=== PATIENT | male | born 1995 | race African-American/Black ===

== ENCOUNTER 2018-02-16 14:27 | Inpatient (IN) | payer MEDICAID ==
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
[2018-02-16] MEDS ORDERED: Aspirin 81mg Chewable Tab PO STA (14:52)
[2018-02-16 15:28] LABS: HEMATOCRIT 30.9 % (41.0-60); HEMOGLOBIN 10.1 gm/dL (12-16); MEAN CORPUSCULAR HEMOGLOBIN 22.4 pg (26.0-30.0); MEAN CORPUSCULAR HGB CONC 32.7 pg (28.0-36.0); MEAN PLATELET VOLUME 7.7 fl; PLATELET COUNT 578 Th/cmm (150-400); RED BLOOD COUNT 4.52 Mil/cmm (4.30-5.70); RED CELL DISTRIBUTION WIDTH 16.5 % (11.5-20.0); WHITE BLOOD COUNT 8.9 Th/cmm (4.8-10.8)
[2018-02-16 15:31] LABS: ALB/GLOB RATIO 1.5 (1.0-1.8); ALBUMIN 4.5 gm/dL (4.2-5.5); ALKALINE PHOSPHATASE 76 U/L (34-104); ANION GAP 11.9 (7.0-16.0); BILIRUBIN,TOTAL 0.5 mg/dL (0.3-1.0); BUN - UREA NITROGEN 13 mg/dL (7-25); CALCIUM SERUM 9.8 mg/dL (8.6-10.3); CARBON DIOXIDE 22.6 mEq/L (21.0-31.0); CHLORIDE 102 mEq/L (98-107); CHOLESTEROL 152 mg/dL (<200); CREATININE - SERUM 0.9 mg/dL (0.7-1.3); CREATININE KINASE 51 U/L (30-223); GFR AFRICAN-AMERICAN > 60.0 ml/min (>90); GFR NON AFRICAN-AMERICAN > 60.0 ml/min; GLUCOSE 156 mg/dL (70-105); HDL -HIGH DENSITY LIPOPROTEIN 41 mg/dL (23-92); POTASSIUM SERUM 3.5 mEq/L (3.5-5.1); SGOT 15 U/L (13-39); SGPT/ALT 17 U/L (7-52); SODIUM SERUM 133 mEq/L (136-145); TOTAL PROTEIN,SERUM 7.6 gm/dL (6.0-8.3); TRIGLYCERIDES 94 mg/dL (<150)
[2018-02-16 15:40] LABS: MEAN CELL VOLUME 68.4 fl (80-99)
[2018-02-16 15:41] LABS: MANUAL DIFF REQUIRED? YES
[2018-02-16 15:42] LABS: DDIMER QUANT 162 ng/mL (100-400)
[2018-02-16 15:58] LABS: BAND NEUTROPHILE 3 % (0-10); BASOPHIL 0 % (0-3); EOSINOPHIL 0 % (0-5); LYMPHOCYTE 9 % (20-50); MONOCYTE 1 % (2-10); NEUTROPHILS 87 % (40-80); PLATELET ESTIMATE INCREASED PLATELETS (NORMAL); TOTAL CELLS COUNTED 100
[2018-02-16] MEDS ORDERED: Aspirin 81mg Chewable Tab ONE (16:02)
[2018-02-16 16:09] LABS: INR 1.04 (0.5-1.4); PROTHROMBIN TIME (TEST) 10.8 SECONDS (9.5-11.5)
[2018-02-16] MEDS ORDERED: Non-Formulary Item 1 EA (Meloxicam [Meloxicam] 15 MG) PO PRN (19:33)
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
[2018-02-16 21:08] LABS: AMPHETAMINE URINE NEGATIVE (NEGATIVE); BARBITURATES URINE NEGATIVE (NEGATIVE); BENZODIAZEPINES QUAL URINE POSITIVE (NEGATIVE); CANNABINOID THC NEGATIVE (NEGATIVE); COCAINE METABOLITE QUAL URINE NEGATIVE (NEGATIVE); METHADONE URINE NEGATIVE (NEGATIVE); METHAMPHETAMINES QUAL URINE NEGATIVE (NEGATIVE); OPIATES (MORPHINE) QUAL. URINE POSITIVE (NEGATIVE); PHENCYCLIDINE (PCP) URINE NEGATIVE (NEGATIVE); TRICYCLICS (TCA) QUAL. URINE NEGATIVE (NEGATIVE)
[2018-02-17] MEDS: Albuterol Nebulizer 2.5mg/3mL HHN SCH ×4 (00:51→21:36)
[2018-02-17 05:53] VITALS: BP 113/49
[2018-02-17 06:33] LABS: HEMATOCRIT 31.3 % (41.0-60); HEMOGLOBIN 9.9 gm/dL (12-16); MEAN CORPUSCULAR HEMOGLOBIN 21.5 pg (26.0-30.0); MEAN CORPUSCULAR HGB CONC 31.8 pg (28.0-36.0); MEAN PLATELET VOLUME 7.5 fl; PLATELET COUNT 612 Th/cmm (150-400); RED BLOOD COUNT 4.61 Mil/cmm (4.30-5.70); RED CELL DISTRIBUTION WIDTH 16.5 % (11.5-20.0); WHITE BLOOD COUNT 6.9 Th/cmm (4.8-10.8)
[2018-02-17 06:37] LABS: MANUAL DIFF REQUIRED? YES
[2018-02-17 07:20] LABS: BAND NEUTROPHILE 1 % (0-10); BASOPHIL 4 % (0-3); EOSINOPHIL 1 % (0-5); LYMPHOCYTE 35 % (20-50); MONOCYTE 7 % (2-10); NEUTROPHILS 52 % (40-80); PLATELET ESTIMATE INCREASED PLATELETS (NORMAL); TOTAL CELLS COUNTED 100
[2018-02-17 07:57] LABS: ANION GAP 16.7 (7.0-16.0); BUN - UREA NITROGEN 12 mg/dL (7-25); CARBON DIOXIDE 19.7 mEq/L (21.0-31.0); CHLORIDE 105 mEq/L (98-107); CREATININE - SERUM 0.8 mg/dL (0.7-1.3); GFR AFRICAN-AMERICAN > 60.0 ml/min (>90); GFR NON AFRICAN-AMERICAN > 60.0 ml/min; GLUCOSE 128 mg/dL (70-105); POTASSIUM SERUM 3.4 mEq/L (3.5-5.1); SODIUM SERUM 138 mEq/L (136-145)
[2018-02-17] MEDS ORDERED: Morphine Sulfate 2 mg/mL 1mL Syr IVP PRN (08:15)
--- NOTE | 2018-02-17 08:19 | General Progress Note ---
Subjective - Review of Systems Service Date: 02/17/18 Subjective: Patient was seen and exam and no acute distress. No shortness of breath. Objective - Results Result Diagrams: 02/17/18 06:09 02/16/18 15:07 Recent Labs: Laboratory Last Values WBC 6.9 Th/cmm (4.8-10.8) 02/17/18 06:09 RBC 4.61 Mil/cmm (4.30-5.70) 02/17/18 06:09 Hgb 9.9 gm/dL (12-16) L 02/17/18 06:09 Hct 31.3 % (41.0-60) L 02/17/18 06:09 MCV 68.4 fl (80-99) L 02/16/18 14:55 MCH 21.5 pg (26.0-30.0) L 02/17/18 06:09 MCHC Differential 31.8 pg (28.0-36.0) 02/17/18 06:09 RDW 16.5 % (11.5-20.0) 02/17/18 06:09 Plt Count 612 Th/cmm (150-400) H 02/17/18 06:09 MPV 7.5 fl 02/17/18 06:09 Band Neutrophils % 1 % (0-10) 02/17/18 06:09 Neutrophils (Manual) 52 % (40-80) 02/17/18 06:09 Lymphocytes 35 % (20-50) 02/17/18 06:09 Monocytes 7 % (2-10) 02/17/18 06:09 Eosinophils 1 % (0-5) 02/17/18 06:09 Basophils 4 % (0-3) H 02/17/18 06:09 Platelet Estimate INCREASED PLATELETS (NORMAL) 02/17/18 06:09 Microcytosis 2+ 02/17/18 06:09 PT 10.8 SECONDS (9.5-11.5) 02/16/18 15:07 INR 1.04 (0.5-1.4) 02/16/18 15:07 D-Dimer 162 ng/mL (100-400) 02/16/18 15:07 Sodium 133 mEq/L (136-145) L 02/16/18 15:07 Potassium 3.5 mEq/L (3.5-5.1) 02/16/18 15:07 Chloride 102 mEq/L (98-107) 02/16/18 15:07 Carbon Dioxide 22.6 mEq/L (21.0-31.0) 02/16/18 15:07 Anion Gap 11.9 (7.0-16.0) 02/16/18 15:07 BUN 13 mg/dL (7-25) 02/16/18 15:07 Creatinine 0.9 mg/dL (0.7-1.3) 02/16/18 15:07 Est GFR ( Amer) > 60.0 ml/min (>90) 02/16/18 15:07 Est GFR (Non-Af Amer) > 60.0 ml/min 02/16/18 15:07 BUN/Creatinine Ratio 14.4 02/16/18 15:07 Glucose 156 mg/dL (70-105) H 02/16/18 15:07 Calcium 9.8 mg/dL (8.6-10.3) 02/16/18 15:07 Total Bilirubin 0.5 mg/dL (0.3-1.0) 02/16/18 15:07 AST 15 U/L (13-39) 02/16/18 15:07 ALT 17 U/L (7-52) 02/16/18 15:07 Alkaline Phosphatase 76 U/L (34-104) 02/16/18 15:07 Creatine Kinase 51 U/L (30-223) 02/16/18 15:07 Troponin I < 0.01 ng/mL (0.01-0.05) L 02/17/18 06:09 B-Natriuretic Peptide 8.2 pg/mL (5.0-100.0) 02/17/18 06:09 Total Protein 7.6 gm/dL (6.0-8.3) 02/16/18 15:07 Albumin 4.5 gm/dL (4.2-5.5) 02/16/18 15:07 Globulin 3.1 gm/dL 02/16/18 15:07 Albumin/Globulin Ratio 1.5 (1.0-1.8) 02/16/18 15:07 Triglycerides 94 mg/dL (<150) 02/16/18 15:07 Cholesterol 152 mg/dL (<200) 02/16/18 15:07 LDL Cholesterol Direct 101 mg/dL (75-193) 02/16/18 15:07 HDL Cholesterol 41 mg/dL (23-92) 02/16/18 15:07 TSH 0.31 uIU/ml (0.34-5.60) L 02/16/18 15:07 Urine Opiates Screen POSITIVE (NEGATIVE) H 02/16/18 16:35 Urine Methadone Screen NEGATIVE (NEGATIVE) 02/16/18 16:35 Ur Barbiturates Screen NEGATIVE (NEGATIVE) 02/16/18 16:35 Ur Tricyclics Screen NEGATIVE (NEGATIVE) 02/16/18 16:35 Ur Phencyclidine Scrn NEGATIVE (NEGATIVE) 02/16/18 16:35 Amphetamines Screen NEGATIVE (NEGATIVE) 02/16/18 16:35 U Methamphetamines Scrn NEGATIVE (NEGATIVE) 02/16/18 16:35 U Benzodiazepines Scrn POSITIVE (NEGATIVE) H 02/16/18 16:35 U Cocaine Metab Screen NEGATIVE (NEGATIVE) 02/16/18 16:35 U Cannabinoids Screen NEGATIVE (NEGATIVE) 02/16/18 16:35 Ethyl Alcohol < 10 mg/dL (0-10) 02/16/18 15:07 - Physical Exam Vitals and I&O: Vital Signs Temp 97.0 F 02/17/18 04:00 Pulse 83 02/17/18 07:24 Resp 18 02/17/18 07:24 BP 113/49 02/17/18 05:53 Pulse Ox 100 02/17/18 07:24 Intake & Output 02/16/18 02/17/18 02/17/18 18:59 06:59 18:59 Intake Total 460 Balance 460 Weight (lbs) 102.058 kg Intake: Oral 460 Other: # Voids 2 # Bowel Movements 0 Weight Source Patient stated Active Medications: Current Medications Albuterol Sulfate (Albuterol 2.5mg/3ml Neb Ud) 2.5 mg HHN Q6HRT RODRIGUEZ Stop: 04/18/18 00:59 Last Admin: 02/17/18 07:24 Dose: 2.5 mg Ferrous Sulfate (Iron) 325 mg PO DAILY RODRIGUEZ Stop: 04/18/18 08:59 Gabapentin (Neurontin) 800 mg PO Q8HR RODRIGUEZ Stop: 04/17/18 20:59 Last Admin: 02/17/18 05:16 Dose: 800 mg Insulin Aspart (Novolog) 2 units SUBQ DAILY [facility] Stop: 04/18/18 08:59 Miscellaneous (Apixaban [Eliquis]) 5 mg PO BID [facility] Stop: 04/18/18 08:59 Miscellaneous (Meloxicam [Meloxicam]) 15 mg PO PRN PRN PRN Reason: PAIN Morphine Sulfate (Ms-Contin) 15 mg PO Q4HR PRN PRN Reason: Severe Pain Stop: 04/18/18 00:00 Pantoprazole Sodium (Protonix) 40 mg PO DAILY [facility] Stop: 04/18/18 08:59 Prednisone (Deltasone) 50 mg PO BID [facility] Stop: 04/18/18 08:59 Sucralfate (Carafate) 1 gm PO BID [facility] Stop: 04/18/18 08:59 Trazodone HCl (Desyrel) 50 mg PO PRN PRN; Protocol PRN Reason: Sleeplessness Stop: 04/17/18 19:32 General: Alert, Oriented x3 HEENT: Atraumatic, PERRLA, EOMI Cardiovascular: Regular rate, Normal S1, Normal S2 Lungs: Clear to auscultation Abdomen: Bowel sounds, Soft Extremities: no Clubbing, no Cyanosis, no Edema Assessment/Plan - Problem List Patient Problems: All Active Problems LEFT SIDED CHEST PAIN WITH DIZZINESS (Acute) - Assessment Assessment: Current Active Problems Problem Status Onset LEFT SIDED CHEST PAIN WITH DIZZINESS Acute Chest Pain r/o ACS HTN CAD Dyslipidemia Asthma/COPD PUD/GERD Athritis Stent placement Anemia Neuropathy - Plan Plan: Cardiology consult telemetry bed chest xray repeat troponin I q8x3
--- NOTE | 2018-02-17 08:20 | Diagnostic Imaging Report ---
Portable chest x-ray Time: 1500 hours History: Chest pain Allowing for portable technique the heart size is normal. No focal pulmonary parenchymal processes. No hilar or mediastinal abnormalities. Impression: No acute abnormalities.
[2018-02-17 08:57] LABS: MEAN CELL VOLUME 67.8 fl (80-99)
[2018-02-17] MEDS ORDERED: INSULIN ASPART, RECOMBINANT 100 UNITS/ML SUBQ SCH (09:00)
[2018-02-17] MEDS ORDERED: Non-Formulary Item 1 EA (Apixaban [Eliquis] 5 MG) PO SCH (09:00)
[2018-02-17] MEDS: Pantoprazole 40 mg EC Tab PO SCH (09:15)
[2018-02-17] MEDS: Ferrous Sulfate 325 MG TAB PO SCH (09:15)
[2018-02-17] MEDS: KCL 20mEq/100mL Premix 20 MEQ/100 ML PIGGYBACK IV SCH ×2 (10:05→11:31)
[2018-02-17] MEDS ORDERED: Potassium Chloride 20 MEQ, Lidocaine 1% 20mL Vial 25 MG in Sodium Chloride 0.9% 250 ML IV ONE (11:02)
[2018-02-17] MEDS: INSULIN ASPART SLIDING SCALE 100 UNITS/ML UNIT SUBQ SCH ×3 (12:10→20:57)
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
[2018-02-18] MEDS: Albuterol Nebulizer 2.5mg/3mL HHN SCH ×4 (00:53→19:38)
[2018-02-18 05:43] LABS: HEMATOCRIT 31.7 % (41.0-60); HEMOGLOBIN 10.1 gm/dL (12-16); MEAN CORPUSCULAR HEMOGLOBIN 21.8 pg (26.0-30.0); MEAN CORPUSCULAR HGB CONC 31.9 pg (28.0-36.0); MEAN PLATELET VOLUME 7.5 fl; PLATELET COUNT 589 Th/cmm (150-400); RED BLOOD COUNT 4.65 Mil/cmm (4.30-5.70); RED CELL DISTRIBUTION WIDTH 16.4 % (11.5-20.0); WHITE BLOOD COUNT 11.8 Th/cmm (4.8-10.8)
[2018-02-18 05:44] LABS: MANUAL DIFF REQUIRED? YES; MEAN CELL VOLUME 68.2 fl (80-99)
[2018-02-18 06:13] LABS: BAND NEUTROPHILE 3 % (0-10); LYMPHOCYTE 16 % (20-50); MONOCYTE 3 % (2-10); NEUTROPHILS 78 % (40-80); TOTAL CELLS COUNTED 100
[2018-02-18] MEDS: INSULIN ASPART SLIDING SCALE 100 UNITS/ML UNIT SUBQ SCH ×4 (06:30→20:53)
--- NOTE | 2018-02-18 08:19 | General Progress Note ---
Subjective - Review of Systems Service Date: 02/18/18 Subjective: Patient was seen and exam and no acute distress. No shortness of breath. Anxious this AM. visibly shaking. Admits to Anxiety Objective - Results Result Diagrams: 02/18/18 05:34 02/17/18 06:09 Recent Labs: Laboratory Last Values WBC 11.8 Th/cmm (4.8-10.8) H 02/18/18 05:34 RBC 4.65 Mil/cmm (4.30-5.70) 02/18/18 05:34 Hgb 10.1 gm/dL (12-16) L 02/18/18 05:34 Hct 31.7 % (41.0-60) L 02/18/18 05:34 MCV 68.2 fl (80-99) L 02/18/18 05:34 MCH 21.8 pg (26.0-30.0) L 02/18/18 05:34 MCHC Differential 31.9 pg (28.0-36.0) 02/18/18 05:34 RDW 16.4 % (11.5-20.0) 02/18/18 05:34 Plt Count 589 Th/cmm (150-400) H 02/18/18 05:34 MPV 7.5 fl 02/18/18 05:34 Band Neutrophils % 3 % (0-10) 02/18/18 05:34 Neutrophils (Manual) 78 % (40-80) 02/18/18 05:34 Lymphocytes 16 % (20-50) L 02/18/18 05:34 Monocytes 3 % (2-10) 02/18/18 05:34 Eosinophils 1 % (0-5) 02/17/18 06:09 Basophils 4 % (0-3) H 02/17/18 06:09 Platelet Estimate INCREASED PLATELETS (NORMAL) 02/17/18 06:09 Microcytosis 2+ 02/18/18 05:34 ESR 36 mm/hr (0-20) H 02/17/18 06:09 PT 10.8 SECONDS (9.5-11.5) 02/16/18 15:07 INR 1.04 (0.5-1.4) 02/16/18 15:07 D-Dimer 162 ng/mL (100-400) 02/16/18 15:07 Sodium 138 mEq/L (136-145) 02/17/18 06:09 Potassium 3.4 mEq/L (3.5-5.1) L 02/17/18 06:09 Chloride 105 mEq/L (98-107) 02/17/18 06:09 Carbon Dioxide 19.7 mEq/L (21.0-31.0) L 02/17/18 06:09 Anion Gap 16.7 (7.0-16.0) H 02/17/18 06:09 BUN 12 mg/dL (7-25) 02/17/18 06:09 Creatinine 0.8 mg/dL (0.7-1.3) 02/17/18 06:09 Est GFR ( Amer) > 60.0 ml/min (>90) 02/17/18 06:09 Est GFR (Non-Af Amer) > 60.0 ml/min 02/17/18 06:09 BUN/Creatinine Ratio 15.0 02/17/18 06:09 Glucose 128 mg/dL (70-105) H 02/17/18 06:09 POC Glucose 125 MG/DL (70 - 105) H 02/18/18 05:51 Hemoglobin A1c % 6.0 % (4.0-6.0) 02/16/18 15:07 Calcium 10.0 mg/dL (8.6-10.3) 02/17/18 06:09 Total Bilirubin 0.5 mg/dL (0.3-1.0) 02/16/18 15:07 AST 15 U/L (13-39) 02/16/18 15:07 ALT 17 U/L (7-52) 02/16/18 15:07 Alkaline Phosphatase 76 U/L (34-104) 02/16/18 15:07 Creatine Kinase 51 U/L (30-223) 02/16/18 15:07 Troponin I < 0.01 ng/mL (0.01-0.05) L 02/17/18 22:00 C-Reactive Protein < 0.2 mg/dL (0.0-0.9) 02/17/18 14:15 B-Natriuretic Peptide 8.2 pg/mL (5.0-100.0) 02/17/18 06:09 Total Protein 7.6 gm/dL (6.0-8.3) 02/16/18 15:07 Albumin 4.5 gm/dL (4.2-5.5) 02/16/18 15:07 Globulin 3.1 gm/dL 02/16/18 15:07 Albumin/Globulin Ratio 1.5 (1.0-1.8) 02/16/18 15:07 Triglycerides 94 mg/dL (<150) 02/16/18 15:07 Cholesterol 152 mg/dL (<200) 02/16/18 15:07 LDL Cholesterol Direct 101 mg/dL (75-193) 02/16/18 15:07 HDL Cholesterol 41 mg/dL (23-92) 02/16/18 15:07 TSH 0.31 uIU/ml (0.34-5.60) L 02/16/18 15:07 Urine Opiates Screen POSITIVE (NEGATIVE) H 02/16/18 16:35 Urine Methadone Screen NEGATIVE (NEGATIVE) 02/16/18 16:35 Ur Barbiturates Screen NEGATIVE (NEGATIVE) 02/16/18 16:35 Ur Tricyclics Screen NEGATIVE (NEGATIVE) 02/16/18 16:35 Ur Phencyclidine Scrn NEGATIVE (NEGATIVE) 02/16/18 16:35 Amphetamines Screen NEGATIVE (NEGATIVE) 02/16/18 16:35 U Methamphetamines Scrn NEGATIVE (NEGATIVE) 02/16/18 16:35 U Benzodiazepines Scrn POSITIVE (NEGATIVE) H 02/16/18 16:35 U Cocaine Metab Screen NEGATIVE (NEGATIVE) 02/16/18 16:35 U Cannabinoids Screen NEGATIVE (NEGATIVE) 02/16/18 16:35 Ethyl Alcohol < 10 mg/dL (0-10) 02/16/18 15:07 - Physical Exam Vitals and I&O: Vital Signs Temp 97.6 F 02/18/18 04:00 Pulse 83 02/18/18 07:27 Resp 18 02/18/18 07:27 BP 103/53 02/18/18 04:00 Pulse Ox 99 02/18/18 07:27 Intake & Output 02/17/18 02/18/18 02/18/18 18:59 06:59 18:59 Intake Total 600 Balance 600 Weight (lbs) 102.058 kg 102.058 kg Intake: Oral 600 Other: # Voids 3 # Bowel Movements 0 Weight Source Patient stated Bedscale Active Medications: Current Medications Albuterol Sulfate (Albuterol 2.5mg/3ml Neb Ud) 2.5 mg HHN Q6HRT [facility] Stop: 04/18/18 00:59 Last Admin: 02/18/18 07:27 Dose: 2.5 mg Ferrous Sulfate (Iron) 325 mg PO DAILY [facility] Stop: 04/18/18 08:59 Last Admin: 02/17/18 09:15 Dose: 325 mg Gabapentin (Neurontin) 800 mg PO Q8HR [facility] Stop: 04/17/18 20:59 Last Admin: 02/18/18 04:12 Dose: 800 mg Insulin Aspart (Novolog) 2 units SUBQ DAILY [facility] Stop: 04/18/18 08:59 Last Admin: 02/17/18 08:31 Dose: 2 units Insulin Aspart (Novolog Insulin Sliding Scale) 0 units SUBQ ACHS [facility] PRN Reason: Protocol Stop: 04/18/18 11:29 Last Admin: 02/18/18 06:30 Dose: Not Given Lorazepam (Ativan) 0.5 mg PO Q6HR PRN; Protocol PRN Reason: Agitation Stop: 04/19/18 08:14 Miscellaneous (Apixaban [Eliquis]) 5 mg PO BID [facility] Stop: 04/18/18 08:59 Miscellaneous (Meloxicam [Meloxicam]) 15 mg PO PRN PRN PRN Reason: PAIN Morphine Sulfate (Ms-Contin) 15 mg PO Q4H PRN PRN Reason: Pain (Moderate) Stop: 04/18/18 08:44 Last Admin: 02/18/18 04:12 Dose: 15 mg Pantoprazole Sodium (Protonix) 40 mg PO DAILY [facility] Stop: 04/18/18 08:59 Last Admin: 02/17/18 09:15 Dose: 40 mg Prednisone (Deltasone) 50 mg PO BID [facility] Stop: 04/18/18 08:59 Last Admin: 02/17/18 17:16 Dose: 50 mg Sucralfate (Carafate) 1 gm PO BID [facility] Stop: 04/18/18 08:59 Last Admin: 02/17/18 17:16 Dose: 1 gm Trazodone HCl (Desyrel) 50 mg PO PRN PRN; Protocol PRN Reason: Sleeplessness Stop: 04/17/18 19:32 Last Admin: 02/18/18 05:47 Dose: 50 mg General: Alert, Oriented x3 HEENT: Atraumatic, PERRLA, EOMI Cardiovascular: Regular rate, Normal S1, Normal S2 Lungs: Clear to auscultation Abdomen: Bowel sounds, Soft Extremities: no Clubbing, no Cyanosis, no Edema Assessment/Plan - Problem List Patient Problems: All Active Problems LEFT SIDED CHEST PAIN WITH DIZZINESS (Acute) - Assessment Assessment: Current Active Problems Problem Status Onset LEFT SIDED CHEST PAIN WITH DIZZINESS Acute Chest Pain r/o ACS HTN CAD Dyslipidemia Asthma/COPD PUD/GERD Athritis Stent placement Anemia Neuropathy possible GIB hypokalemia Anxiety - Plan Plan: Cardiology consult telemetry bed chest xray repeat troponin I q8x3 GI consult Antoine 40meq Ativan 0.5mg PO
[2018-02-18] MEDS: Pantoprazole 40 mg EC Tab PO SCH (08:25)
[2018-02-18] MEDS: Ferrous Sulfate 325 MG TAB PO SCH (08:25)
--- NOTE | 2018-02-18 09:02 | GI Progress Note ---
Subjective - Review of Systems Service Date: 02/18/18 Subjective: Pressured speech, continues to report chest pain, asking for pain meds Objective - Results Result Diagrams: 02/18/18 05:34 02/17/18 06:09 Recent Labs: Laboratory Last Values WBC 11.8 Th/cmm (4.8-10.8) H 02/18/18 05:34 RBC 4.65 Mil/cmm (4.30-5.70) 02/18/18 05:34 Hgb 10.1 gm/dL (12-16) L 02/18/18 05:34 Hct 31.7 % (41.0-60) L 02/18/18 05:34 MCV 68.2 fl (80-99) L 02/18/18 05:34 MCH 21.8 pg (26.0-30.0) L 02/18/18 05:34 MCHC Differential 31.9 pg (28.0-36.0) 02/18/18 05:34 RDW 16.4 % (11.5-20.0) 02/18/18 05:34 Plt Count 589 Th/cmm (150-400) H 02/18/18 05:34 MPV 7.5 fl 02/18/18 05:34 Band Neutrophils % 3 % (0-10) 02/18/18 05:34 Neutrophils (Manual) 78 % (40-80) 02/18/18 05:34 Lymphocytes 16 % (20-50) L 02/18/18 05:34 Monocytes 3 % (2-10) 02/18/18 05:34 Eosinophils 1 % (0-5) 02/17/18 06:09 Basophils 4 % (0-3) H 02/17/18 06:09 Platelet Estimate INCREASED PLATELETS (NORMAL) 02/17/18 06:09 Microcytosis 2+ 02/18/18 05:34 ESR 36 mm/hr (0-20) H 02/17/18 06:09 PT 10.8 SECONDS (9.5-11.5) 02/16/18 15:07 INR 1.04 (0.5-1.4) 02/16/18 15:07 D-Dimer 162 ng/mL (100-400) 02/16/18 15:07 Sodium 138 mEq/L (136-145) 02/17/18 06:09 Potassium 3.4 mEq/L (3.5-5.1) L 02/17/18 06:09 Chloride 105 mEq/L (98-107) 02/17/18 06:09 Carbon Dioxide 19.7 mEq/L (21.0-31.0) L 02/17/18 06:09 Anion Gap 16.7 (7.0-16.0) H 02/17/18 06:09 BUN 12 mg/dL (7-25) 02/17/18 06:09 Creatinine 0.8 mg/dL (0.7-1.3) 02/17/18 06:09 Est GFR ( Amer) > 60.0 ml/min (>90) 02/17/18 06:09 Est GFR (Non-Af Amer) > 60.0 ml/min 02/17/18 06:09 BUN/Creatinine Ratio 15.0 02/17/18 06:09 Glucose 128 mg/dL (70-105) H 02/17/18 06:09 POC Glucose 125 MG/DL (70 - 105) H 02/18/18 05:51 Hemoglobin A1c % 6.0 % (4.0-6.0) 02/16/18 15:07 Calcium 10.0 mg/dL (8.6-10.3) 02/17/18 06:09 Total Bilirubin 0.5 mg/dL (0.3-1.0) 02/16/18 15:07 AST 15 U/L (13-39) 02/16/18 15:07 ALT 17 U/L (7-52) 02/16/18 15:07 Alkaline Phosphatase 76 U/L (34-104) 02/16/18 15:07 Creatine Kinase 51 U/L (30-223) 02/16/18 15:07 Troponin I < 0.01 ng/mL (0.01-0.05) L 02/17/18 22:00 C-Reactive Protein < 0.2 mg/dL (0.0-0.9) 02/17/18 14:15 B-Natriuretic Peptide 8.2 pg/mL (5.0-100.0) 02/17/18 06:09 Total Protein 7.6 gm/dL (6.0-8.3) 02/16/18 15:07 Albumin 4.5 gm/dL (4.2-5.5) 02/16/18 15:07 Globulin 3.1 gm/dL 02/16/18 15:07 Albumin/Globulin Ratio 1.5 (1.0-1.8) 02/16/18 15:07 Triglycerides 94 mg/dL (<150) 02/16/18 15:07 Cholesterol 152 mg/dL (<200) 02/16/18 15:07 LDL Cholesterol Direct 101 mg/dL (75-193) 02/16/18 15:07 HDL Cholesterol 41 mg/dL (23-92) 02/16/18 15:07 TSH 0.31 uIU/ml (0.34-5.60) L 02/16/18 15:07 Urine Opiates Screen POSITIVE (NEGATIVE) H 02/16/18 16:35 Urine Methadone Screen NEGATIVE (NEGATIVE) 02/16/18 16:35 Ur Barbiturates Screen NEGATIVE (NEGATIVE) 02/16/18 16:35 Ur Tricyclics Screen NEGATIVE (NEGATIVE) 02/16/18 16:35 Ur Phencyclidine Scrn NEGATIVE (NEGATIVE) 02/16/18 16:35 Amphetamines Screen NEGATIVE (NEGATIVE) 02/16/18 16:35 U Methamphetamines Scrn NEGATIVE (NEGATIVE) 02/16/18 16:35 U Benzodiazepines Scrn POSITIVE (NEGATIVE) H 02/16/18 16:35 U Cocaine Metab Screen NEGATIVE (NEGATIVE) 02/16/18 16:35 U Cannabinoids Screen NEGATIVE (NEGATIVE) 02/16/18 16:35 Ethyl Alcohol < 10 mg/dL (0-10) 02/16/18 15:07 - Physical Exam Vitals and I&O: Vital Signs Temp 97.6 F 02/18/18 04:00 Pulse 83 02/18/18 07:27 Resp 18 02/18/18 07:27 BP 103/53 02/18/18 04:00 Pulse Ox 99 02/18/18 07:27 Intake & Output 02/17/18 02/18/18 02/18/18 18:59 06:59 18:59 Intake Total 600 Balance 600 Weight (lbs) 102.058 kg 102.058 kg Intake: Oral 600 Other: # Voids 3 # Bowel Movements 0 Weight Source Patient stated Bedscale Active Medications: Current Medications Albuterol Sulfate (Albuterol 2.5mg/3ml Neb Ud) 2.5 mg HHN Q6HRT [facility] Stop: 04/18/18 00:59 Last Admin: 02/18/18 07:27 Dose: 2.5 mg Ferrous Sulfate (Iron) 325 mg PO DAILY [facility] Stop: 04/18/18 08:59 Last Admin: 02/18/18 08:25 Dose: 325 mg Gabapentin (Neurontin) 800 mg PO Q8HR [facility] Stop: 04/17/18 20:59 Last Admin: 02/18/18 04:12 Dose: 800 mg Insulin Aspart (Novolog Insulin Sliding Scale) 0 units SUBQ ACHS [facility] PRN Reason: Protocol Stop: 04/18/18 11:29 Last Admin: 02/18/18 06:30 Dose: Not Given Lorazepam (Ativan) 0.5 mg PO Q6HR PRN; Protocol PRN Reason: Agitation Stop: 04/19/18 08:14 Miscellaneous (Apixaban [Eliquis]) 5 mg PO BID [facility] Stop: 04/18/18 08:59 Miscellaneous (Meloxicam [Meloxicam]) 15 mg PO PRN PRN PRN Reason: PAIN Morphine Sulfate (Ms-Contin) 15 mg PO Q4H PRN PRN Reason: Pain (Moderate) Stop: 04/18/18 08:44 Last Admin: 02/18/18 08:24 Dose: 15 mg Pantoprazole Sodium (Protonix) 40 mg PO DAILY [facility] Stop: 04/18/18 08:59 Last Admin: 02/18/18 08:25 Dose: 40 mg Prednisone (Deltasone) 50 mg PO BID [facility] Stop: 04/18/18 08:59 Last Admin: 02/17/18 17:16 Dose: 50 mg Sucralfate (Carafate) 1 gm PO BID [facility] Stop: 04/18/18 08:59 Last Admin: 02/18/18 08:24 Dose: 1 gm Trazodone HCl (Desyrel) 50 mg PO PRN PRN; Protocol PRN Reason: Sleeplessness Stop: 04/17/18 19:32 Last Admin: 02/18/18 05:47 Dose: 50 mg General: Alert, Oriented x3 HEENT: Atraumatic, PERRLA, EOMI Cardiovascular: Regular rate, Normal S1, Normal S2 Lungs: Clear to auscultation Abdomen: Bowel sounds, Soft Extremities: no Clubbing, no Cyanosis, no Edema Assessment/Plan - Problem List Patient Problems: All Active Problems LEFT SIDED CHEST PAIN WITH DIZZINESS (Acute) - Assessment Assessment: # Possible UC # Hx of possible CAD, myocarditis as per pt Unclear history as pt may be unreliable historian with underlying psychiatric disorder. Reports he has ulcerative colitis, and comes in reporting he is on prednisone 50mg daily for both his cardiac issues and his UC. Attempting to get his records for EGD/colo that he reports he had 6 months ago Plan: - would try and verify his steroid dosing with his PCP. Would not give more than 50mg daily - try and obtain EGD/colo records and GI history records - no plan for any procedure now unless for hemostasis - suggest psychiatric consultation
--- NOTE | 2018-02-18 09:38 | Consultation ---
DATE OF CONSULTATION: 02/17/[address] Call. HISTORY OF PRESENT ILLNESS: This is a 22-year-old male patient who has a known history of coronary artery disease with stent placement, came to the Emergency Room with chest pain. No history of PND or orthopnea. PAST MEDICAL HISTORY: Hypertension, history of coronary artery disease with stent placement, old myocardial infarction, COPD, hyperlipidemia, GERD, and arthritis. FAMILY HISTORY: Diabetes and hypertension. SOCIAL HISTORY: No history of smoking, alcohol abuse. ALLERGIES: None. PHYSICAL EXAMINATION: VITAL SIGNS: Blood pressure 130/80, pulse 70, and respirations 20. HEAD: Normocephalic. No lumps or bumps. EYES: Pupils equal, reactive to light. Fundi show AV nicking, sclerae white, conjunctivae pink. NECK: Carotid 2+. Normal upstroke. JVD flat. Thyroid not palpable. Lymph nodes not palpable. CHEST: Shows increased AP diameter. No kyphosis or scoliosis. LUNGS: Bilateral bronchovesicular breath sounds. HEART: PMI fifth intercostal space with lateral to midclavicular line. S1, S2. No S3, S4, soft systolic murmur. ABDOMEN: Soft. Liver and spleen not palpable. No organomegaly. Bowel sounds active. NEUROLOGIC: Unremarkable. EXTREMITIES: Peripheral pulses 2+. No pedal edema. LABORATORY DATA: The patient's troponin levels are normal. EKG unremarkable. CLINICAL IMPRESSION: Chest pain, unlikely coronary artery disease, history of stable angina, old myocardial infarction, coronary artery disease with stent placement, hypertension, hyperlipidemia, nicotine dependence, gout, gastroesophageal reflux disease, chronic obstructive pulmonary disease, and arthritis. PLAN: We will get troponin level, EKG, echocardiogram, and monitor the patient on telemetry bed. JOB# [id number]
--- NOTE | 2018-02-18 15:57 | Consultation ---
DATE OF CONSULTATION: 02/17/[address] Yuniel Call. M-MODE ECHOCARDIOGRAM: Mitral valve, anterior leaflet of mitral valve shows decreased excursion, EF velocity. Posterior leaflet of mitral valve shows normal excursion, ejection fraction 65%. Left atrium normal. Aortic root shows normal dimension, normal excursion of aortic leaflets. CONCLUSION: Normal M-MODE echo, ejection fraction 60%. 2D ECHO: Long axis view showed normal sized left ventricle with normal wall motion, mitral valve shows normal excursion. Left atrium normal. Aortic root shows normal dimension, normal excursion of aortic leaflets. Short axis view of mitral valve normal. Short axis view of aortic valve normal. Apical four chamber view showed normal sized left ventricle, left atrium, right ventricle, right atrium, tricuspid and mitral valve. Ejection fraction 65%. CONCLUSION: Normal 2D echo, ejection fraction 65%. Doppler study showed trace mitral regurgitation. [facility]# [id number]
--- NOTE | 2018-02-18 20:57 | Consultation ---
DATE OF CONSULTATION: 02/18/2018 A 22-year-old male presenting to the hospital with chest pain, history of hypertension, CAD, asthma, arthritis. The patient notes that he has been somewhat depressed as of late alluding to his time that he lost in [place] and [place], "I saw combat, kids being killed," alludes to nervousness at times, difficulty with sleeping, states he takes trazodone at night to sleep. 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 Denies psych admits. Denies suicide history. SOCIAL HISTORY: States he is . Living in [place], [place]. He does give me consent to contact to increase collateral. 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 MEDICAL PROBLEMS: As noted. MEDICATIONS: Noted. MENTAL STATUS EXAMINATION: Stated age. Fair eye contact. Speech mildly pressured. Mood "fine." Affect flat. Thought processes were tangential but redirectable. No SI. No HI. The patient is somewhat grandiose and seemingly delusional. Insight and judgment diminished. PROVISIONAL DIAGNOSIS: Mood unspecified; psychosis unspecified; rule out bipolar affective disorder versus schizophrenia; also insomnia, unspecified; rule out PTSD. Medical: Please see full H and P. RECOMMENDATIONS AND PLAN: We will contact , increase collateral at [phone]. I am concerned about the patient's story and this will need to be confirmed. We will contact case management and social work to also attempt to increase collateral. JOB# [id number]
[2018-02-19] MEDS: Albuterol Nebulizer 2.5mg/3mL HHN SCH ×4 (00:52→19:52)
--- NOTE | 2018-02-19 06:08 | General Progress Note ---
Subjective - Review of Systems Service Date: 02/19/18 Subjective: Patient sleeping and in no acute distress. No shortness of breath. was seen by GI and Cardiology. Objective - Results Result Diagrams: 02/18/18 05:34 02/17/18 06:09 Recent Labs: Laboratory Last Values WBC 11.8 Th/cmm (4.8-10.8) H 02/18/18 05:34 RBC 4.65 Mil/cmm (4.30-5.70) 02/18/18 05:34 Hgb 10.1 gm/dL (12-16) L 02/18/18 05:34 Hct 31.7 % (41.0-60) L 02/18/18 05:34 MCV 68.2 fl (80-99) L 02/18/18 05:34 MCH 21.8 pg (26.0-30.0) L 02/18/18 05:34 MCHC Differential 31.9 pg (28.0-36.0) 02/18/18 05:34 RDW 16.4 % (11.5-20.0) 02/18/18 05:34 Plt Count 589 Th/cmm (150-400) H 02/18/18 05:34 MPV 7.5 fl 02/18/18 05:34 Band Neutrophils % 3 % (0-10) 02/18/18 05:34 Neutrophils (Manual) 78 % (40-80) 02/18/18 05:34 Lymphocytes 16 % (20-50) L 02/18/18 05:34 Monocytes 3 % (2-10) 02/18/18 05:34 Eosinophils 1 % (0-5) 02/17/18 06:09 Basophils 4 % (0-3) H 02/17/18 06:09 Platelet Estimate INCREASED PLATELETS (NORMAL) 02/17/18 06:09 Microcytosis 2+ 02/18/18 05:34 ESR 36 mm/hr (0-20) H 02/17/18 06:09 PT 10.8 SECONDS (9.5-11.5) 02/16/18 15:07 INR 1.04 (0.5-1.4) 02/16/18 15:07 D-Dimer 162 ng/mL (100-400) 02/16/18 15:07 Sodium 138 mEq/L (136-145) 02/17/18 06:09 Potassium 3.4 mEq/L (3.5-5.1) L 02/17/18 06:09 Chloride 105 mEq/L (98-107) 02/17/18 06:09 Carbon Dioxide 19.7 mEq/L (21.0-31.0) L 02/17/18 06:09 Anion Gap 16.7 (7.0-16.0) H 02/17/18 06:09 BUN 12 mg/dL (7-25) 02/17/18 06:09 Creatinine 0.8 mg/dL (0.7-1.3) 02/17/18 06:09 Est GFR ( Amer) > 60.0 ml/min (>90) 02/17/18 06:09 Est GFR (Non-Af Amer) > 60.0 ml/min 02/17/18 06:09 BUN/Creatinine Ratio 15.0 02/17/18 06:09 Glucose 128 mg/dL (70-105) H 02/17/18 06:09 POC Glucose 213 MG/DL (70 - 105) H 02/18/18 20:42 Hemoglobin A1c % 6.0 % (4.0-6.0) 02/16/18 15:07 Calcium 10.0 mg/dL (8.6-10.3) 02/17/18 06:09 Total Bilirubin 0.5 mg/dL (0.3-1.0) 02/16/18 15:07 AST 15 U/L (13-39) 02/16/18 15:07 ALT 17 U/L (7-52) 02/16/18 15:07 Alkaline Phosphatase 76 U/L (34-104) 02/16/18 15:07 Creatine Kinase 51 U/L (30-223) 02/16/18 15:07 Troponin I < 0.01 ng/mL (0.01-0.05) L 02/17/18 22:00 C-Reactive Protein < 0.2 mg/dL (0.0-0.9) 02/17/18 14:15 B-Natriuretic Peptide 8.2 pg/mL (5.0-100.0) 02/17/18 06:09 Total Protein 7.6 gm/dL (6.0-8.3) 02/16/18 15:07 Albumin 4.5 gm/dL (4.2-5.5) 02/16/18 15:07 Globulin 3.1 gm/dL 02/16/18 15:07 Albumin/Globulin Ratio 1.5 (1.0-1.8) 02/16/18 15:07 Triglycerides 94 mg/dL (<150) 02/16/18 15:07 Cholesterol 152 mg/dL (<200) 02/16/18 15:07 LDL Cholesterol Direct 101 mg/dL (75-193) 02/16/18 15:07 HDL Cholesterol 41 mg/dL (23-92) 02/16/18 15:07 TSH 0.31 uIU/ml (0.34-5.60) L 02/16/18 15:07 Urine Opiates Screen POSITIVE (NEGATIVE) H 02/16/18 16:35 Urine Methadone Screen NEGATIVE (NEGATIVE) 02/16/18 16:35 Ur Barbiturates Screen NEGATIVE (NEGATIVE) 02/16/18 16:35 Ur Tricyclics Screen NEGATIVE (NEGATIVE) 02/16/18 16:35 Ur Phencyclidine Scrn NEGATIVE (NEGATIVE) 02/16/18 16:35 Amphetamines Screen NEGATIVE (NEGATIVE) 02/16/18 16:35 U Methamphetamines Scrn NEGATIVE (NEGATIVE) 02/16/18 16:35 U Benzodiazepines Scrn POSITIVE (NEGATIVE) H 02/16/18 16:35 U Cocaine Metab Screen NEGATIVE (NEGATIVE) 02/16/18 16:35 U Cannabinoids Screen NEGATIVE (NEGATIVE) 02/16/18 16:35 Ethyl Alcohol < 10 mg/dL (0-10) 02/16/18 15:07 - Physical Exam Vitals and I&O: Vital Signs Temp 97.2 F 02/19/18 04:00 Pulse 96 02/19/18 04:00 Resp 20 02/19/18 04:00 BP 153/69 02/19/18 04:00 Pulse Ox 96 02/19/18 04:00 Intake & Output 02/18/18 02/18/18 02/19/18 06:59 18:59 06:59 Intake Total 600 5000 Output Total 5500 Balance 600 -500 Weight (lbs) 102.058 kg 102.058 kg Intake: Oral 600 5000 Output: Urine 5500 Other: # Voids 3 # Bowel Movements 0 0 Weight Source Bedscale Bedscale Active Medications: Current Medications Albuterol Sulfate (Albuterol 2.5mg/3ml Neb Ud) 2.5 mg HHN Q6HRT [facility] Stop: 04/18/18 00:59 Last Admin: 02/19/18 00:52 Dose: Not Given Ferrous Sulfate (Iron) 325 mg PO DAILY [facility] Stop: 04/18/18 08:59 Last Admin: 02/18/18 08:25 Dose: 325 mg Gabapentin (Neurontin) 800 mg PO Q8HR [facility] Stop: 04/17/18 20:59 Last Admin: 02/18/18 21:32 Dose: 800 mg Insulin Aspart (Novolog Insulin Sliding Scale) 0 units SUBQ ACHS RODRIGUEZ PRN Reason: Protocol Stop: 04/18/18 11:29 Last Admin: 02/18/18 20:53 Dose: 4 units Lorazepam (Ativan) 0.5 mg PO Q6HR PRN; Protocol PRN Reason: Agitation Stop: 04/19/18 08:14 Morphine Sulfate (Ms-Contin) 15 mg PO Q4H PRN PRN Reason: Pain (Moderate) Stop: 04/18/18 08:44 Last Admin: 02/19/18 02:55 Dose: 15 mg Pantoprazole Sodium (Protonix) 40 mg PO DAILY [facility] Stop: 04/18/18 08:59 Last Admin: 02/18/18 08:25 Dose: 40 mg Prednisone (Deltasone) 50 mg PO BID [facility] Stop: 04/18/18 08:59 Last Admin: 02/18/18 16:45 Dose: 50 mg Rivaroxaban (Xarelto) 20 mg PO DAILY [facility] Stop: 04/19/18 11:29 Last Admin: 02/18/18 12:00 Dose: 20 mg Sucralfate (Carafate) 1 gm PO BID [facility] Stop: 04/18/18 08:59 Last Admin: 02/18/18 16:45 Dose: 1 gm Trazodone HCl (Desyrel) 50 mg PO PRN PRN; Protocol PRN Reason: Sleeplessness Stop: 04/17/18 19:32 Last Admin: 02/18/18 05:47 Dose: 50 mg General: Alert, Oriented x3 HEENT: Atraumatic, PERRLA, EOMI Cardiovascular: Regular rate, Normal S1, Normal S2 Lungs: Clear to auscultation Abdomen: Bowel sounds, Soft Extremities: no Clubbing, no Cyanosis, no Edema Assessment/Plan - Problem List Patient Problems: All Active Problems LEFT SIDED CHEST PAIN WITH DIZZINESS (Acute) - Assessment Assessment: Current Active Problems Problem Status Onset LEFT SIDED CHEST PAIN WITH DIZZINESS Acute Chest Pain r/o ACS HTN CAD Dyslipidemia Asthma/COPD PUD/GERD Athritis Stent placement Anemia Neuropathy possible GIB hypokalemia - Plan Plan: Cardiology consult telemetry bed chest xray repeat troponin I q8x3 GI consult Antoine 40meq
[2018-02-19] MEDS: INSULIN ASPART SLIDING SCALE 100 UNITS/ML UNIT SUBQ SCH ×4 (06:54→20:38)
[2018-02-19] MEDS: Pantoprazole 40 mg EC Tab PO SCH (08:06)
[2018-02-19] MEDS: Ferrous Sulfate 325 MG TAB PO SCH (08:06)
--- NOTE | 2018-02-19 09:03 | GI Progress Note ---
Subjective - Review of Systems Service Date: 02/19/18 Subjective: Asks for immodium for constipation, still with pressured speech Objective - Results Result Diagrams: 02/18/18 05:34 02/17/18 06:09 Recent Labs: Laboratory Last Values WBC 11.8 Th/cmm (4.8-10.8) H 02/18/18 05:34 RBC 4.65 Mil/cmm (4.30-5.70) 02/18/18 05:34 Hgb 10.1 gm/dL (12-16) L 02/18/18 05:34 Hct 31.7 % (41.0-60) L 02/18/18 05:34 MCV 68.2 fl (80-99) L 02/18/18 05:34 MCH 21.8 pg (26.0-30.0) L 02/18/18 05:34 MCHC Differential 31.9 pg (28.0-36.0) 02/18/18 05:34 RDW 16.4 % (11.5-20.0) 02/18/18 05:34 Plt Count 589 Th/cmm (150-400) H 02/18/18 05:34 MPV 7.5 fl 02/18/18 05:34 Band Neutrophils % 3 % (0-10) 02/18/18 05:34 Neutrophils (Manual) 78 % (40-80) 02/18/18 05:34 Lymphocytes 16 % (20-50) L 02/18/18 05:34 Monocytes 3 % (2-10) 02/18/18 05:34 Eosinophils 1 % (0-5) 02/17/18 06:09 Basophils 4 % (0-3) H 02/17/18 06:09 Platelet Estimate INCREASED PLATELETS (NORMAL) 02/17/18 06:09 Microcytosis 2+ 02/18/18 05:34 ESR 36 mm/hr (0-20) H 02/17/18 06:09 PT 10.8 SECONDS (9.5-11.5) 02/16/18 15:07 INR 1.04 (0.5-1.4) 02/16/18 15:07 D-Dimer 162 ng/mL (100-400) 02/16/18 15:07 Sodium 138 mEq/L (136-145) 02/17/18 06:09 Potassium 3.4 mEq/L (3.5-5.1) L 02/17/18 06:09 Chloride 105 mEq/L (98-107) 02/17/18 06:09 Carbon Dioxide 19.7 mEq/L (21.0-31.0) L 02/17/18 06:09 Anion Gap 16.7 (7.0-16.0) H 02/17/18 06:09 BUN 12 mg/dL (7-25) 02/17/18 06:09 Creatinine 0.8 mg/dL (0.7-1.3) 02/17/18 06:09 Est GFR ( Amer) > 60.0 ml/min (>90) 02/17/18 06:09 Est GFR (Non-Af Amer) > 60.0 ml/min 02/17/18 06:09 BUN/Creatinine Ratio 15.0 02/17/18 06:09 Glucose 128 mg/dL (70-105) H 02/17/18 06:09 POC Glucose 132 MG/DL (70 - 105) H 02/19/18 06:52 Hemoglobin A1c % 6.0 % (4.0-6.0) 02/16/18 15:07 Calcium 10.0 mg/dL (8.6-10.3) 02/17/18 06:09 Total Bilirubin 0.5 mg/dL (0.3-1.0) 02/16/18 15:07 AST 15 U/L (13-39) 02/16/18 15:07 ALT 17 U/L (7-52) 02/16/18 15:07 Alkaline Phosphatase 76 U/L (34-104) 02/16/18 15:07 Creatine Kinase 51 U/L (30-223) 02/16/18 15:07 Troponin I < 0.01 ng/mL (0.01-0.05) L 02/17/18 22:00 C-Reactive Protein < 0.2 mg/dL (0.0-0.9) 02/17/18 14:15 B-Natriuretic Peptide 8.2 pg/mL (5.0-100.0) 02/17/18 06:09 Total Protein 7.6 gm/dL (6.0-8.3) 02/16/18 15:07 Albumin 4.5 gm/dL (4.2-5.5) 02/16/18 15:07 Globulin 3.1 gm/dL 02/16/18 15:07 Albumin/Globulin Ratio 1.5 (1.0-1.8) 02/16/18 15:07 Triglycerides 94 mg/dL (<150) 02/16/18 15:07 Cholesterol 152 mg/dL (<200) 02/16/18 15:07 LDL Cholesterol Direct 101 mg/dL (75-193) 02/16/18 15:07 HDL Cholesterol 41 mg/dL (23-92) 02/16/18 15:07 TSH 0.31 uIU/ml (0.34-5.60) L 02/16/18 15:07 Urine Opiates Screen POSITIVE (NEGATIVE) H 02/16/18 16:35 Urine Methadone Screen NEGATIVE (NEGATIVE) 02/16/18 16:35 Ur Barbiturates Screen NEGATIVE (NEGATIVE) 02/16/18 16:35 Ur Tricyclics Screen NEGATIVE (NEGATIVE) 02/16/18 16:35 Ur Phencyclidine Scrn NEGATIVE (NEGATIVE) 02/16/18 16:35 Amphetamines Screen NEGATIVE (NEGATIVE) 02/16/18 16:35 U Methamphetamines Scrn NEGATIVE (NEGATIVE) 02/16/18 16:35 U Benzodiazepines Scrn POSITIVE (NEGATIVE) H 02/16/18 16:35 U Cocaine Metab Screen NEGATIVE (NEGATIVE) 02/16/18 16:35 U Cannabinoids Screen NEGATIVE (NEGATIVE) 02/16/18 16:35 Ethyl Alcohol < 10 mg/dL (0-10) 02/16/18 15:07 - Physical Exam Vitals and I&O: Vital Signs Temp 97.6 F 02/19/18 08:11 Pulse 97 02/19/18 08:11 Resp 18 02/19/18 08:11 BP 128/50 02/19/18 08:11 Pulse Ox 100 02/19/18 08:11 Intake & Output 02/18/18 02/19/18 02/19/18 18:59 06:59 18:59 Intake Total 5000 2000 Output Total 5500 4000 Balance -500 -2000 Weight (lbs) 102.058 kg 102.058 kg Intake: Oral 5000 2000 Output: Urine 5500 4000 Other: # Bowel Movements 0 0 Weight Source Bedscale Bedscale Active Medications: Current Medications Albuterol Sulfate (Albuterol 2.5mg/3ml Neb Ud) 2.5 mg HHN Q6HRT [facility] Stop: 04/18/18 00:59 Last Admin: 02/19/18 07:18 Dose: 2.5 mg Bisacodyl (Dulcolax 5 Mg Ec Tab) 5 mg PO X1 ONE Stop: 02/19/18 09:00 Ferrous Sulfate (Iron) 325 mg PO DAILY [facility] Stop: 04/18/18 08:59 Last Admin: 02/19/18 08:06 Dose: 325 mg Gabapentin (Neurontin) 800 mg PO Q8HR [facility] Stop: 04/17/18 20:59 Last Admin: 02/19/18 06:47 Dose: 800 mg Insulin Aspart (Novolog Insulin Sliding Scale) 0 units SUBQ ACHS [facility] PRN Reason: Protocol Stop: 04/18/18 11:29 Last Admin: 02/19/18 06:54 Dose: Not Given Lorazepam (Ativan) 0.5 mg PO Q6HR PRN; Protocol PRN Reason: Agitation Stop: 04/19/18 08:14 Morphine Sulfate (Ms-Contin) 15 mg PO Q4H PRN PRN Reason: Pain (Moderate) Stop: 04/18/18 08:44 Last Admin: 02/19/18 08:06 Dose: 15 mg Pantoprazole Sodium (Protonix) 40 mg PO DAILY [facility] Stop: 04/18/18 08:59 Last Admin: 02/19/18 08:06 Dose: 40 mg Polyethylene Glycol (Miralax) 17 gm PO DAILY [facility] Stop: 04/20/18 08:59 Prednisone (Deltasone) 50 mg PO BID [facility] Stop: 04/18/18 08:59 Last Admin: 02/19/18 08:06 Dose: 50 mg Rivaroxaban (Xarelto) 20 mg PO DAILY [facility] Stop: 04/19/18 11:29 Last Admin: 02/19/18 08:06 Dose: 20 mg Sucralfate (Carafate) 1 gm PO BID [facility] Stop: 04/18/18 08:59 Last Admin: 02/19/18 08:06 Dose: 1 gm Trazodone HCl (Desyrel) 50 mg PO PRN PRN; Protocol PRN Reason: Sleeplessness Stop: 04/17/18 19:32 Last Admin: 02/18/18 05:47 Dose: 50 mg General: Alert, Oriented x3 HEENT: Atraumatic, PERRLA, EOMI Cardiovascular: Regular rate, Normal S1, Normal S2 Lungs: Clear to auscultation Abdomen: Bowel sounds, Soft Extremities: no Clubbing, no Cyanosis, no Edema Assessment/Plan - Problem List Patient Problems: All Active Problems LEFT SIDED CHEST PAIN WITH DIZZINESS (Acute) - Assessment Assessment: # Possible UC # Hx of possible CAD, myocarditis as per pt Unclear history as pt may be unreliable historian with underlying psychiatric disorder. Reports he has ulcerative colitis, and comes in reporting he is on prednisone 50mg daily for both his cardiac issues and his UC. Attempting to get his records for EGD/colo that he reports he had 6 months ago. Not yet obtained. Psych has seen the pt, and there is likely underlying psychiatric disorder Plan: - would try and verify his steroid dosing with his PCP. Would not give more than 50mg daily, and consider tapering this down quickly if he has not been on steroids chronically - try and obtain EGD/colo records and GI history records - no plan for any procedure now unless for hemostasis - dulcolax and miralax for constipation From a GI standpoint, the pt does not need hospitalization.
[2018-02-19] MEDS: POLYETHYLENE GLYCOL 3350 17 GM PACK PO SCH (09:46)
[2018-02-20] MEDS: Albuterol Nebulizer 2.5mg/3mL HHN SCH ×4 (00:26→18:54)
[2018-02-20] MEDS ORDERED: Haloperidol Lactate 5 mg/mL 1mL Vial IM ONE (07:21)
[2018-02-20] MEDS ORDERED: Haloperidol Lactate 5 mg/mL 1mL Vial ONE (07:25)
[2018-02-20] MEDS: INSULIN ASPART SLIDING SCALE 100 UNITS/ML UNIT SUBQ SCH ×4 (08:01→21:30)
--- NOTE | 2018-02-20 09:09 | General Progress Note ---
Subjective - Review of Systems Service Date: 02/20/18 Subjective: Patient was seen and examined. No new changes. Patient evaluated by psychiatry. 5150 hold. Objective - Results Result Diagrams: 02/18/18 05:34 02/17/18 06:09 Recent Labs: Laboratory Last Values WBC 11.8 Th/cmm (4.8-10.8) H 02/18/18 05:34 RBC 4.65 Mil/cmm (4.30-5.70) 02/18/18 05:34 Hgb 10.1 gm/dL (12-16) L 02/18/18 05:34 Hct 31.7 % (41.0-60) L 02/18/18 05:34 MCV 68.2 fl (80-99) L 02/18/18 05:34 MCH 21.8 pg (26.0-30.0) L 02/18/18 05:34 MCHC Differential 31.9 pg (28.0-36.0) 02/18/18 05:34 RDW 16.4 % (11.5-20.0) 02/18/18 05:34 Plt Count 589 Th/cmm (150-400) H 02/18/18 05:34 MPV 7.5 fl 02/18/18 05:34 Band Neutrophils % 3 % (0-10) 02/18/18 05:34 Neutrophils (Manual) 78 % (40-80) 02/18/18 05:34 Lymphocytes 16 % (20-50) L 02/18/18 05:34 Monocytes 3 % (2-10) 02/18/18 05:34 Eosinophils 1 % (0-5) 02/17/18 06:09 Basophils 4 % (0-3) H 02/17/18 06:09 Platelet Estimate INCREASED PLATELETS (NORMAL) 02/17/18 06:09 Microcytosis 2+ 02/18/18 05:34 ESR 36 mm/hr (0-20) H 02/17/18 06:09 PT 10.8 SECONDS (9.5-11.5) 02/16/18 15:07 INR 1.04 (0.5-1.4) 02/16/18 15:07 D-Dimer 162 ng/mL (100-400) 02/16/18 15:07 Sodium 138 mEq/L (136-145) 02/17/18 06:09 Potassium 3.4 mEq/L (3.5-5.1) L 02/17/18 06:09 Chloride 105 mEq/L (98-107) 02/17/18 06:09 Carbon Dioxide 19.7 mEq/L (21.0-31.0) L 02/17/18 06:09 Anion Gap 16.7 (7.0-16.0) H 02/17/18 06:09 BUN 12 mg/dL (7-25) 02/17/18 06:09 Creatinine 0.8 mg/dL (0.7-1.3) 02/17/18 06:09 Est GFR ( Amer) > 60.0 ml/min (>90) 02/17/18 06:09 Est GFR (Non-Af Amer) > 60.0 ml/min 02/17/18 06:09 BUN/Creatinine Ratio 15.0 02/17/18 06:09 Glucose 128 mg/dL (70-105) H 02/17/18 06:09 POC Glucose 187 MG/DL (70 - 105) H 02/20/18 06:04 Hemoglobin A1c % 6.0 % (4.0-6.0) 02/16/18 15:07 Calcium 10.0 mg/dL (8.6-10.3) 02/17/18 06:09 Total Bilirubin 0.5 mg/dL (0.3-1.0) 02/16/18 15:07 AST 15 U/L (13-39) 02/16/18 15:07 ALT 17 U/L (7-52) 02/16/18 15:07 Alkaline Phosphatase 76 U/L (34-104) 02/16/18 15:07 Creatine Kinase 51 U/L (30-223) 02/16/18 15:07 Troponin I < 0.01 ng/mL (0.01-0.05) L 02/17/18 22:00 C-Reactive Protein < 0.2 mg/dL (0.0-0.9) 02/17/18 14:15 B-Natriuretic Peptide 8.2 pg/mL (5.0-100.0) 02/17/18 06:09 Total Protein 7.6 gm/dL (6.0-8.3) 02/16/18 15:07 Albumin 4.5 gm/dL (4.2-5.5) 02/16/18 15:07 Globulin 3.1 gm/dL 02/16/18 15:07 Albumin/Globulin Ratio 1.5 (1.0-1.8) 02/16/18 15:07 Triglycerides 94 mg/dL (<150) 02/16/18 15:07 Cholesterol 152 mg/dL (<200) 02/16/18 15:07 LDL Cholesterol Direct 101 mg/dL (75-193) 02/16/18 15:07 HDL Cholesterol 41 mg/dL (23-92) 02/16/18 15:07 TSH 0.31 uIU/ml (0.34-5.60) L 02/16/18 15:07 Urine Opiates Screen POSITIVE (NEGATIVE) H 02/16/18 16:35 Urine Methadone Screen NEGATIVE (NEGATIVE) 02/16/18 16:35 Ur Barbiturates Screen NEGATIVE (NEGATIVE) 02/16/18 16:35 Ur Tricyclics Screen NEGATIVE (NEGATIVE) 02/16/18 16:35 Ur Phencyclidine Scrn NEGATIVE (NEGATIVE) 02/16/18 16:35 Amphetamines Screen NEGATIVE (NEGATIVE) 02/16/18 16:35 U Methamphetamines Scrn NEGATIVE (NEGATIVE) 02/16/18 16:35 U Benzodiazepines Scrn POSITIVE (NEGATIVE) H 02/16/18 16:35 U Cocaine Metab Screen NEGATIVE (NEGATIVE) 02/16/18 16:35 U Cannabinoids Screen NEGATIVE (NEGATIVE) 02/16/18 16:35 Ethyl Alcohol < 10 mg/dL (0-10) 02/16/18 15:07 - Physical Exam Vitals and I&O: Vital Signs Temp 97.4 F 02/20/18 04:36 Pulse 86 02/20/18 07:57 Resp 20 02/20/18 07:57 BP 113/56 02/20/18 04:36 Pulse Ox 98 02/20/18 07:57 Intake & Output 02/19/18 02/20/18 02/20/18 18:59 06:59 18:59 Intake Total 2000 1500 Output Total 6000 1200 Balance -4000 300 Weight (lbs) 102.058 kg 101.605 kg Intake: Oral 1999 1500 Output: Urine 6000 1200 Other: # Bowel Movements 0 Weight Source Bedscale Bedscale Active Medications: Current Medications Albuterol Sulfate (Albuterol 2.5mg/3ml Neb Ud) 2.5 mg HHN Q6HRT [facility] Stop: 04/18/18 00:59 Last Admin: 02/20/18 07:55 Dose: 2.5 mg Ferrous Sulfate (Iron) 325 mg PO DAILY [facility] Stop: 04/18/18 08:59 Last Admin: 02/19/18 08:06 Dose: 325 mg Gabapentin (Neurontin) 800 mg PO Q8HR [facility] Stop: 04/17/18 20:59 Last Admin: 02/20/18 05:22 Dose: 800 mg Insulin Aspart (Novolog Insulin Sliding Scale) 0 units SUBQ ACHS [facility] PRN Reason: Protocol Stop: 04/18/18 11:29 Last Admin: 02/20/18 08:01 Dose: Not Given Lorazepam (Ativan) 0.5 mg PO Q6HR PRN; Protocol PRN Reason: Agitation Stop: 04/19/18 08:14 Morphine Sulfate (Ms-Contin) 15 mg PO Q4H PRN PRN Reason: Pain (Moderate) Stop: 04/18/18 08:44 Last Admin: 02/20/18 06:33 Dose: 15 mg Pantoprazole Sodium (Protonix) 40 mg PO DAILY [facility] Stop: 04/18/18 08:59 Last Admin: 02/19/18 08:06 Dose: 40 mg Polyethylene Glycol (Miralax) 17 gm PO DAILY [facility] Stop: 04/20/18 08:59 Last Admin: 02/19/18 09:46 Dose: 17 gm Prednisone (Deltasone) 50 mg PO DAILY [facility] Stop: 04/21/18 08:59 Rivaroxaban (Xarelto) 20 mg PO DAILY [facility] Stop: 04/19/18 11:29 Last Admin: 02/19/18 08:06 Dose: 20 mg Sucralfate (Carafate) 1 gm PO BID [facility] Stop: 04/18/18 08:59 Last Admin: 02/19/18 16:54 Dose: 1 gm Trazodone HCl (Desyrel) 50 mg PO PRN PRN; Protocol PRN Reason: Sleeplessness Stop: 04/17/18 19:32 Last Admin: 02/18/18 05:47 Dose: 50 mg General: Alert, Oriented x3 HEENT: Atraumatic, PERRLA, EOMI Cardiovascular: Regular rate, Normal S1, Normal S2 Lungs: Clear to auscultation Abdomen: Bowel sounds, Soft Extremities: no Clubbing, no Cyanosis, no Edema Assessment/Plan - Problem List Patient Problems: All Active Problems LEFT SIDED CHEST PAIN WITH DIZZINESS (Acute) - Assessment Assessment: Current Active Problems Problem Status Onset LEFT SIDED CHEST PAIN WITH DIZZINESS Acute Chest Pain Acute coronary syndrome ruled out HTN CAD Dyslipidemia controlled. Asthma/COPD PUD/GERD controlled. Athritis Stent placement by history Anemia stable Neuropathy by history hypokalemia - Plan Plan: Cardiology consult telemetry bed chest xray repeat troponin I q8x3 GI consult Antoine 40meq
[2018-02-20] MEDS: Pantoprazole 40 mg EC Tab PO SCH (09:17)
[2018-02-20] MEDS: Ferrous Sulfate 325 MG TAB PO SCH (09:17)
[2018-02-20] MEDS: POLYETHYLENE GLYCOL 3350 17 GM PACK PO SCH (09:18)
--- NOTE | 2018-02-20 09:46 | GI Progress Note ---
Subjective - Review of Systems Service Date: 02/20/18 Subjective: Now on 5150 hold via psychiatry Objective - Results Result Diagrams: 02/18/18 05:34 02/17/18 06:09 Recent Labs: Laboratory Last Values WBC 11.8 Th/cmm (4.8-10.8) H 02/18/18 05:34 RBC 4.65 Mil/cmm (4.30-5.70) 02/18/18 05:34 Hgb 10.1 gm/dL (12-16) L 02/18/18 05:34 Hct 31.7 % (41.0-60) L 02/18/18 05:34 MCV 68.2 fl (80-99) L 02/18/18 05:34 MCH 21.8 pg (26.0-30.0) L 02/18/18 05:34 MCHC Differential 31.9 pg (28.0-36.0) 02/18/18 05:34 RDW 16.4 % (11.5-20.0) 02/18/18 05:34 Plt Count 589 Th/cmm (150-400) H 02/18/18 05:34 MPV 7.5 fl 02/18/18 05:34 Band Neutrophils % 3 % (0-10) 02/18/18 05:34 Neutrophils (Manual) 78 % (40-80) 02/18/18 05:34 Lymphocytes 16 % (20-50) L 02/18/18 05:34 Monocytes 3 % (2-10) 02/18/18 05:34 Eosinophils 1 % (0-5) 02/17/18 06:09 Basophils 4 % (0-3) H 02/17/18 06:09 Platelet Estimate INCREASED PLATELETS (NORMAL) 02/17/18 06:09 Microcytosis 2+ 02/18/18 05:34 ESR 36 mm/hr (0-20) H 02/17/18 06:09 PT 10.8 SECONDS (9.5-11.5) 02/16/18 15:07 INR 1.04 (0.5-1.4) 02/16/18 15:07 D-Dimer 162 ng/mL (100-400) 02/16/18 15:07 Sodium 138 mEq/L (136-145) 02/17/18 06:09 Potassium 3.4 mEq/L (3.5-5.1) L 02/17/18 06:09 Chloride 105 mEq/L (98-107) 02/17/18 06:09 Carbon Dioxide 19.7 mEq/L (21.0-31.0) L 02/17/18 06:09 Anion Gap 16.7 (7.0-16.0) H 02/17/18 06:09 BUN 12 mg/dL (7-25) 02/17/18 06:09 Creatinine 0.8 mg/dL (0.7-1.3) 02/17/18 06:09 Est GFR ( Amer) > 60.0 ml/min (>90) 02/17/18 06:09 Est GFR (Non-Af Amer) > 60.0 ml/min 02/17/18 06:09 BUN/Creatinine Ratio 15.0 02/17/18 06:09 Glucose 128 mg/dL (70-105) H 02/17/18 06:09 POC Glucose 187 MG/DL (70 - 105) H 02/20/18 06:04 Hemoglobin A1c % 6.0 % (4.0-6.0) 02/16/18 15:07 Calcium 10.0 mg/dL (8.6-10.3) 02/17/18 06:09 Total Bilirubin 0.5 mg/dL (0.3-1.0) 02/16/18 15:07 AST 15 U/L (13-39) 02/16/18 15:07 ALT 17 U/L (7-52) 02/16/18 15:07 Alkaline Phosphatase 76 U/L (34-104) 02/16/18 15:07 Creatine Kinase 51 U/L (30-223) 02/16/18 15:07 Troponin I < 0.01 ng/mL (0.01-0.05) L 02/17/18 22:00 C-Reactive Protein < 0.2 mg/dL (0.0-0.9) 02/17/18 14:15 B-Natriuretic Peptide 8.2 pg/mL (5.0-100.0) 02/17/18 06:09 Total Protein 7.6 gm/dL (6.0-8.3) 02/16/18 15:07 Albumin 4.5 gm/dL (4.2-5.5) 02/16/18 15:07 Globulin 3.1 gm/dL 02/16/18 15:07 Albumin/Globulin Ratio 1.5 (1.0-1.8) 02/16/18 15:07 Triglycerides 94 mg/dL (<150) 02/16/18 15:07 Cholesterol 152 mg/dL (<200) 02/16/18 15:07 LDL Cholesterol Direct 101 mg/dL (75-193) 02/16/18 15:07 HDL Cholesterol 41 mg/dL (23-92) 02/16/18 15:07 TSH 0.31 uIU/ml (0.34-5.60) L 02/16/18 15:07 Urine Opiates Screen POSITIVE (NEGATIVE) H 02/16/18 16:35 Urine Methadone Screen NEGATIVE (NEGATIVE) 02/16/18 16:35 Ur Barbiturates Screen NEGATIVE (NEGATIVE) 02/16/18 16:35 Ur Tricyclics Screen NEGATIVE (NEGATIVE) 02/16/18 16:35 Ur Phencyclidine Scrn NEGATIVE (NEGATIVE) 02/16/18 16:35 Amphetamines Screen NEGATIVE (NEGATIVE) 02/16/18 16:35 U Methamphetamines Scrn NEGATIVE (NEGATIVE) 02/16/18 16:35 U Benzodiazepines Scrn POSITIVE (NEGATIVE) H 02/16/18 16:35 U Cocaine Metab Screen NEGATIVE (NEGATIVE) 02/16/18 16:35 U Cannabinoids Screen NEGATIVE (NEGATIVE) 02/16/18 16:35 Ethyl Alcohol < 10 mg/dL (0-10) 02/16/18 15:07 - Physical Exam Vitals and I&O: Vital Signs Temp 97.4 F 02/20/18 04:36 Pulse 86 02/20/18 07:57 Resp 20 02/20/18 07:57 BP 113/56 02/20/18 04:36 Pulse Ox 98 02/20/18 07:57 Intake & Output 02/19/18 02/20/18 02/20/18 18:59 06:59 18:59 Intake Total 2000 1500 Output Total 6000 1200 Balance -4000 300 Weight (lbs) 102.058 kg 101.605 kg Intake: Oral 2000 1500 Output: Urine 6000 1200 Other: # Bowel Movements 0 Weight Source Bedscale Bedscale Active Medications: Current Medications Albuterol Sulfate (Albuterol 2.5mg/3ml Neb Ud) 2.5 mg HHN Q6HRT [facility] Stop: 04/18/18 00:59 Last Admin: 02/20/18 07:55 Dose: 2.5 mg Ferrous Sulfate (Iron) 325 mg PO DAILY [facility] Stop: 04/18/18 08:59 Last Admin: 02/20/18 09:17 Dose: 325 mg Gabapentin (Neurontin) 800 mg PO Q8HR [facility] Stop: 04/17/18 20:59 Last Admin: 02/20/18 05:22 Dose: 800 mg Insulin Aspart (Novolog Insulin Sliding Scale) 0 units SUBQ ACHS [facility] PRN Reason: Protocol Stop: 04/18/18 11:29 Last Admin: 02/20/18 08:01 Dose: Not Given Lorazepam (Ativan) 0.5 mg PO Q6HR PRN; Protocol PRN Reason: Agitation Stop: 04/19/18 08:14 Morphine Sulfate (Ms-Contin) 15 mg PO Q4H PRN PRN Reason: Pain (Moderate) Stop: 04/18/18 08:44 Last Admin: 02/20/18 06:33 Dose: 15 mg Pantoprazole Sodium (Protonix) 40 mg PO DAILY [facility] Stop: 04/18/18 08:59 Last Admin: 02/20/18 09:17 Dose: 40 mg Polyethylene Glycol (Miralax) 17 gm PO DAILY [facility] Stop: 04/20/18 08:59 Last Admin: 02/20/18 09:18 Dose: 17 gm Prednisone (Deltasone) 50 mg PO DAILY [facility] Stop: 04/21/18 08:59 Last Admin: 02/20/18 09:17 Dose: 50 mg Rivaroxaban (Xarelto) 20 mg PO DAILY [facility] Stop: 04/19/18 11:29 Last Admin: 02/20/18 09:17 Dose: 20 mg Sucralfate (Carafate) 1 gm PO BID [facility] Stop: 04/18/18 08:59 Last Admin: 02/20/18 09:17 Dose: 1 gm Trazodone HCl (Desyrel) 50 mg PO PRN PRN; Protocol PRN Reason: Sleeplessness Stop: 04/17/18 19:32 Last Admin: 02/18/18 05:47 Dose: 50 mg General: Alert, Oriented x3 HEENT: Atraumatic, PERRLA, EOMI Cardiovascular: Regular rate, Normal S1, Normal S2 Lungs: Clear to auscultation Abdomen: Bowel sounds, Soft Extremities: no Clubbing, no Cyanosis, no Edema Assessment/Plan - Problem List Patient Problems: All Active Problems LEFT SIDED CHEST PAIN WITH DIZZINESS (Acute) - Assessment Assessment: # Possible UC # Hx of possible CAD, myocarditis as per pt Unclear history as pt may be unreliable historian with underlying psychiatric disorder. Reports he has ulcerative colitis, and comes in reporting he is on prednisone 50mg daily for both his cardiac issues and his UC. Attempting to get his records for EGD/colo that he reports he had 6 months ago. Not yet obtained. Psych has seen the pt, and there is likely underlying psychiatric disorder. Now on 5149 hold Plan: - would try and verify his steroid dosing with his PCP. Would not give more than 50mg daily, and consider tapering this down quickly if he has not been on steroids chronically - try and obtain EGD/colo records and GI history records - no plan for any procedure now unless for hemostasis - dulcolax and miralax for constipation From a GI standpoint, the pt does not need hospitalization.
--- NOTE | 2018-02-20 18:01 | Consultation ---
DATE OF CONSULTATION: 02/20/2018 HISTORY OF PRESENT ILLNESS: A 22-year-old male who presented to the hospital with chest pain, history of hypertension and CAD. The patient with grandiose, still noting he has been in the . He states he lives in [place]. 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 The patient escalates quickly when I try to ask him more question and I want to talk to his . The number is disconnected. He states he has been texting his all day, but refused to give me the correct number. Starts yelling, screaming and cursing "I am going to leave AMA." PAST PSYCHIATRIC HISTORY: Denies. SOCIAL HISTORY: States he is , living in [place], [place]. Also, states he has a home in [facility]. 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 MEDICATIONS: Noted. MENTAL STATUS EXAMINATION: Stated age. Fair eye contact. Speech is loud. Mood "I am pissed." Affect intense. Thought processes were disorganized, highly grandiose. No overt SI or HI. The patient seems delusional. PROVISIONAL DIAGNOSIS: Psychosis, unspecified. RECOMMENDATIONS AND PLAN: I have not been able to verify any of the information he has been given me. The information he has been giving me seems very inconsistent based on his age. There are other reasons as well. When he talks about being a psychiatrist, he uses art terms that are totally inconsistent with medical jargon. PLAN: We will err on the side of caution and initiate a 5150 hold for grave disability. Concerns for his ability to care for his basic needs. JOB# [id number]
[2018-02-21] MEDS: Albuterol Nebulizer 2.5mg/3mL HHN SCH ×4 (00:39→18:44)
--- NOTE | 2018-02-21 07:44 | General Progress Note ---
Subjective - Review of Systems Service Date: 02/21/18 Subjective: Awake, Alert. Patient evaluated by psychiatry. 5150 hold. Objective - Results Result Diagrams: 02/18/18 05:34 02/17/18 06:09 Recent Labs: Laboratory Last Values WBC 11.8 Th/cmm (4.8-10.8) H 02/18/18 05:34 RBC 4.65 Mil/cmm (4.30-5.70) 02/18/18 05:34 Hgb 10.1 gm/dL (12-16) L 02/18/18 05:34 Hct 31.7 % (41.0-60) L 02/18/18 05:34 MCV 68.2 fl (80-99) L 02/18/18 05:34 MCH 21.8 pg (26.0-30.0) L 02/18/18 05:34 MCHC Differential 31.9 pg (28.0-36.0) 02/18/18 05:34 RDW 16.4 % (11.5-20.0) 02/18/18 05:34 Plt Count 589 Th/cmm (150-400) H 02/18/18 05:34 MPV 7.5 fl 02/18/18 05:34 Band Neutrophils % 3 % (0-10) 02/18/18 05:34 Neutrophils (Manual) 78 % (40-80) 02/18/18 05:34 Lymphocytes 16 % (20-50) L 02/18/18 05:34 Monocytes 3 % (2-10) 02/18/18 05:34 Eosinophils 1 % (0-5) 02/17/18 06:09 Basophils 4 % (0-3) H 02/17/18 06:09 Platelet Estimate INCREASED PLATELETS (NORMAL) 02/17/18 06:09 Microcytosis 2+ 02/18/18 05:34 ESR 36 mm/hr (0-20) H 02/17/18 06:09 PT 10.8 SECONDS (9.5-11.5) 02/16/18 15:07 INR 1.04 (0.5-1.4) 02/16/18 15:07 D-Dimer 162 ng/mL (100-400) 02/16/18 15:07 Sodium 138 mEq/L (136-145) 02/17/18 06:09 Potassium 3.4 mEq/L (3.5-5.1) L 02/17/18 06:09 Chloride 105 mEq/L (98-107) 02/17/18 06:09 Carbon Dioxide 19.7 mEq/L (21.0-31.0) L 02/17/18 06:09 Anion Gap 16.7 (7.0-16.0) H 02/17/18 06:09 BUN 12 mg/dL (7-25) 02/17/18 06:09 Creatinine 0.8 mg/dL (0.7-1.3) 02/17/18 06:09 Est GFR ( Amer) > 60.0 ml/min (>90) 02/17/18 06:09 Est GFR (Non-Af Amer) > 60.0 ml/min 02/17/18 06:09 BUN/Creatinine Ratio 15.0 02/17/18 06:09 Glucose 128 mg/dL (70-105) H 02/17/18 06:09 POC Glucose 109 MG/DL (70 - 105) H 02/21/18 06:37 Hemoglobin A1c % 6.0 % (4.0-6.0) 02/16/18 15:07 Calcium 10.0 mg/dL (8.6-10.3) 02/17/18 06:09 Total Bilirubin 0.5 mg/dL (0.3-1.0) 02/16/18 15:07 AST 15 U/L (13-39) 02/16/18 15:07 ALT 17 U/L (7-52) 02/16/18 15:07 Alkaline Phosphatase 76 U/L (34-104) 02/16/18 15:07 Creatine Kinase 51 U/L (30-223) 02/16/18 15:07 Troponin I < 0.01 ng/mL (0.01-0.05) L 02/17/18 22:00 C-Reactive Protein < 0.2 mg/dL (0.0-0.9) 02/17/18 14:15 B-Natriuretic Peptide 8.2 pg/mL (5.0-100.0) 02/17/18 06:09 Total Protein 7.6 gm/dL (6.0-8.3) 02/16/18 15:07 Albumin 4.5 gm/dL (4.2-5.5) 02/16/18 15:07 Globulin 3.1 gm/dL 02/16/18 15:07 Albumin/Globulin Ratio 1.5 (1.0-1.8) 02/16/18 15:07 Triglycerides 94 mg/dL (<150) 02/16/18 15:07 Cholesterol 152 mg/dL (<200) 02/16/18 15:07 LDL Cholesterol Direct 101 mg/dL (75-193) 02/16/18 15:07 HDL Cholesterol 41 mg/dL (23-92) 02/16/18 15:07 TSH 0.31 uIU/ml (0.34-5.60) L 02/16/18 15:07 Urine Opiates Screen POSITIVE (NEGATIVE) H 02/16/18 16:35 Urine Methadone Screen NEGATIVE (NEGATIVE) 02/16/18 16:35 Ur Barbiturates Screen NEGATIVE (NEGATIVE) 02/16/18 16:35 Ur Tricyclics Screen NEGATIVE (NEGATIVE) 02/16/18 16:35 Ur Phencyclidine Scrn NEGATIVE (NEGATIVE) 02/16/18 16:35 Amphetamines Screen NEGATIVE (NEGATIVE) 02/16/18 16:35 U Methamphetamines Scrn NEGATIVE (NEGATIVE) 02/16/18 16:35 U Benzodiazepines Scrn POSITIVE (NEGATIVE) H 02/16/18 16:35 U Cocaine Metab Screen NEGATIVE (NEGATIVE) 02/16/18 16:35 U Cannabinoids Screen NEGATIVE (NEGATIVE) 02/16/18 16:35 Ethyl Alcohol < 10 mg/dL (0-10) 02/16/18 15:07 - Physical Exam Vitals and I&O: Vital Signs Temp 98.4 F 02/21/18 04:00 Pulse 86 02/21/18 04:00 Resp 17 02/21/18 04:00 BP 112/64 02/21/18 04:00 Pulse Ox 98 02/21/18 04:00 Intake & Output 02/20/18 02/21/18 02/21/18 18:59 06:59 18:59 Intake Total 2440 600 Output Total 1350 Balance 1090 600 Weight (lbs) 101.695 kg 101.741 kg Intake: Oral 2440 600 Output: Urine 1350 Other: # Voids 3 # Bowel Movements 0 0 Weight Source Bedscale Bedscale Active Medications: Current Medications Albuterol Sulfate (Albuterol 2.5mg/3ml Neb Ud) 2.5 mg HHN Q6HRT [facility] Stop: 04/18/18 00:59 Last Admin: 02/21/18 07:21 Dose: 2.5 mg Ferrous Sulfate (Iron) 325 mg PO DAILY [facility] Stop: 04/18/18 08:59 Last Admin: 02/20/18 09:17 Dose: 325 mg Gabapentin (Neurontin) 800 mg PO Q8HR [facility] Stop: 04/17/18 20:59 Last Admin: 02/21/18 05:22 Dose: 800 mg Insulin Aspart (Novolog Insulin Sliding Scale) 0 units SUBQ ACHS [facility] PRN Reason: Protocol Stop: 04/18/18 11:29 Last Admin: 02/20/18 21:30 Dose: 6 units Lorazepam (Ativan) 0.5 mg PO Q6HR PRN; Protocol PRN Reason: Agitation Stop: 04/19/18 08:14 Morphine Sulfate (Ms-Contin) 15 mg PO Q4H PRN PRN Reason: Pain (Moderate) Stop: 04/18/18 08:44 Last Admin: 02/21/18 05:23 Dose: 15 mg Pantoprazole Sodium (Protonix) 40 mg PO DAILY [facility] Stop: 04/18/18 08:59 Last Admin: 02/20/18 09:17 Dose: 40 mg Polyethylene Glycol (Miralax) 17 gm PO DAILY [facility] Stop: 04/20/18 08:59 Last Admin: 02/20/18 09:18 Dose: 17 gm Prednisone (Deltasone) 50 mg PO DAILY [facility] Stop: 04/21/18 08:59 Last Admin: 02/20/18 09:17 Dose: 50 mg Rivaroxaban (Xarelto) 20 mg PO DAILY [facility] Stop: 04/19/18 11:29 Last Admin: 02/20/18 09:17 Dose: 20 mg Sucralfate (Carafate) 1 gm PO BID [facility] Stop: 04/18/18 08:59 Last Admin: 02/20/18 17:01 Dose: 1 gm Trazodone HCl (Desyrel) 50 mg PO PRN PRN; Protocol PRN Reason: Sleeplessness Stop: 04/17/18 19:32 Last Admin: 02/18/18 05:47 Dose: 50 mg General: Alert, Oriented x3 HEENT: Atraumatic, PERRLA, EOMI Cardiovascular: Regular rate, Normal S1, Normal S2 Lungs: Clear to auscultation Abdomen: Bowel sounds, Soft Extremities: no Clubbing, no Cyanosis, no Edema Assessment/Plan - Problem List Patient Problems: All Active Problems LEFT SIDED CHEST PAIN WITH DIZZINESS (Acute) - Assessment Assessment: Current Active Problems Problem Status Onset LEFT SIDED CHEST PAIN WITH DIZZINESS Acute Chest Pain Acute coronary syndrome ruled out HTN CAD Dyslipidemia controlled. Asthma/COPD PUD/GERD controlled. Athritis Stent placement by history Anemia stable Neuropathy by history hypokalemia - Plan Plan: continue current treatment.
[2018-02-21] MEDS: INSULIN ASPART SLIDING SCALE 100 UNITS/ML UNIT SUBQ SCH ×4 (08:00→20:18)
[2018-02-21] MEDS: Ferrous Sulfate 325 MG TAB PO SCH (08:42)
[2018-02-21] MEDS: POLYETHYLENE GLYCOL 3350 17 GM PACK PO SCH (08:42)
[2018-02-21] MEDS: Pantoprazole 40 mg EC Tab PO SCH (08:42)
[2018-02-21] MEDS ORDERED: Magnesium Citrate 1.75 GM/300 mL Bottle PO ONE (17:17)
[2018-02-22] MEDS: Albuterol Nebulizer 2.5mg/3mL HHN SCH ×4 (01:48→18:53)
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
[2018-02-22] MEDS: INSULIN ASPART SLIDING SCALE 100 UNITS/ML UNIT SUBQ SCH ×4 (08:00→20:50)
--- NOTE | 2018-02-22 08:04 | Progress Notes ---
DATE: PSYCHIATRIC PROGRESS NOTE SUBJECTIVE: Chart reviewed and the patient interviewed. Also discussed the patient's condition with the staff and reviewed records and labs. The patient is argumentative about placement and he insists that he has a place in [place] that secondary social studies teacher is trying to verify. The patient seems to have some grandiose delusions, but at the same time, no agitation. Also, denies any thoughts of suicide or homicide. The patient also said that he does not take any psych medicine except trazodone and Ativan. ASSESSMENT: The patient is not suicidal or overtly psychotic, but he might have some grandiose delusions. TREATMENT PLAN: We will discontinue 5150 hold and the patient can be treated in lower level of care. The patient can be discharged when medically stable. JOB# [id number]
[2018-02-22 08:56] LABS: ANION GAP 12.2 (7.0-16.0); BUN - UREA NITROGEN 18 mg/dL (7-25); CALCIUM SERUM 9.4 mg/dL (8.6-10.3); CARBON DIOXIDE 27.5 mEq/L (21.0-31.0); CHLORIDE 97 mEq/L (98-107); CREATININE - SERUM 0.8 mg/dL (0.7-1.3); GFR AFRICAN-AMERICAN > 60.0 ml/min (>90); GFR NON AFRICAN-AMERICAN > 60.0 ml/min; GLUCOSE 134 mg/dL (70-105); POTASSIUM SERUM 3.7 mEq/L (3.5-5.1); SODIUM SERUM 133 mEq/L (136-145)
[2018-02-22] MEDS: Ferrous Sulfate 325 MG TAB PO SCH ×2 (09:26→09:44)
[2018-02-22] MEDS: POLYETHYLENE GLYCOL 3350 17 GM PACK PO SCH ×2 (09:27→09:47)
[2018-02-22] MEDS: Pantoprazole 40 mg EC Tab PO SCH ×2 (09:27→09:44)
--- NOTE | 2018-02-22 11:56 | Diagnostic Imaging Report ---
Exam: CT examination abdomen pelvis. HISTORY: Abdominal pain Total DLP equals 498 CTDI equals 9.9 Findings: Multiple contiguous thin section of the abdomen pelvis obtained with administration of intravenous contrast material. Oral contrast was not visualized, no prior studies available comparison. The study demonstrates normal aeration of lung parenchyma the bases The liver and spleen are intact. The pancreas is normal. The gallbladder is contracted. The kidneys concentrate and excrete contrast material normal fashion. No free fluid is noted. Large amount of fecal content is noted throughout the colon. There is no evidence of diverticular disease of diverticulitis. The uterine bladder is normal. The visualized appendix is intact Bony structures demonstrate no evidence for lytic or blastic structures. IMPRESSION : Essentially unremarkable examination of the abdomen and pelvis. Portable visualization of intravenous contrast material most likely due to suboptimal injection.
[2018-02-22] MEDS ORDERED: IOHEXOL 300mgI/mL 100 ML VIAL IVP ONE (12:09)
[2018-02-23] MEDS: Albuterol Nebulizer 2.5mg/3mL HHN SCH ×3 (00:11→12:02)
[2018-02-23] MEDS: INSULIN ASPART SLIDING SCALE 100 UNITS/ML UNIT SUBQ SCH ×2 (07:42→11:45)
[2018-02-23] MEDS ORDERED: APAP/Codeine 300 mg/30 mg Tab PO PRN (08:16)
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
[2018-02-23] MEDS: Ferrous Sulfate 325 MG TAB PO SCH (08:39)
[2018-02-23] MEDS: Pantoprazole 40 mg EC Tab PO SCH (08:40)
[2018-02-23] MEDS: POLYETHYLENE GLYCOL 3350 17 GM PACK PO SCH (08:40)
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
--- NOTE | 2018-02-28 09:55 | Discharge Summary ---
DATE OF DISCHARGE: 02/23/2018 PRELIMINARY DIAGNOSES: 1. Chest pain, rule out acute coronary syndrome. 2. Hypertension. 3. Coronary artery disease. 4. Dyslipidemia. 5. Asthma/chronic obstructive pulmonary disease. 6. Possible gastrointestinal bleed. 7. Hypokalemia. 8. Neuropathy. 9. Anemia. 10. Coronary artery disease. 11. Arthritis. 12. Possible psychiatric disorder. DISCHARGE DIAGNOSES: 1. Chest pain, acute coronary syndrome, ruled out. 2. Hypertension, stable. 3. Coronary artery disease. 4. Hyperlipidemia. 5. Asthma. 6. Anemia, stable. 7. Hypokalemia, now resolved. 8. Arthritis. 9. Neuropathy. 10. Questionable psychiatric disorder. BRIEF HISTORY OF PRESENT ILLNESS: This is a 22-year-old female who presented to [facility] ER for chest pain x 1 day, which was initially seen and treated for chest pain, which was quickly ruled out of acute coronary syndrome. The patient did have a history of hypertension, coronary artery disease, stent placement, asthma, hyperlipidemia, but lab works was performed and no acute medical conditions were noted. During his hospital stay, he improved, was seen and evaluated by Psychiatry for grandiose delusions and was placed on a 5150 over span of span of 72 hours. He was seen and evaluated by Psychiatry as well as a GI and Cardiology. The patient improved and was subsequently discharged in stable condition. Please see dictated reports for the above consults. JOB# [id number]
== END 2018-02-23 14:21 | disposition home or self-care (01) | DRG 203 ==
LOC: ER 14:27 → TELE 18:48 → MSI 02-19 11:06
PROVIDERS: ADMIT Family Medicine; ATTEND Family Medicine
DX: M94.0 Chondrocostal junction syndrome [Tietze] (principal); F32.3 Major depressive disorder, single episode, severe with psychotic features; E87.1 Hypo-osmolality and hyponatremia; G62.9 Polyneuropathy, unspecified; I25.119 Atherosclerotic heart disease of native coronary artery with unspecified angina pectoris; R07.89 Other chest pain; D64.9 Anemia, unspecified; E78.5 Hyperlipidemia, unspecified; I10 Essential (primary) hypertension; J44.9 Chronic obstructive pulmonary disease, unspecified; K27.9 Peptic ulcer, site unspecified, unspecified as acute or chronic, without hemorrhage or perforation; K21.9 Gastro-esophageal reflux disease without esophagitis; M19.90 Unspecified osteoarthritis, unspecified site; E87.6 Hypokalemia; F29 Unspecified psychosis not due to a substance or known physiological condition; F17.210 Nicotine dependence, cigarettes, uncomplicated; D47.3 Essential (hemorrhagic) thrombocythemia; R73.9 Hyperglycemia, unspecified; Z60.2 Problems related to living alone; K59.00 Constipation, unspecified; M10.9 Gout, unspecified; F41.9 Anxiety disorder, unspecified; I34.0 Nonrheumatic mitral (valve) insufficiency; Z79.899 Other long term (current) drug therapy; Z82.49 Family history of ischemic heart disease and other diseases of the circulatory system; Z71.89 Other specified counseling; Z95.5 Presence of coronary angioplasty implant and graft; Z83.3 Family history of diabetes mellitus; Z88.8 Allergy status to other drugs, medicaments and biological substances; Z91.018 Allergy to other foods
CPT/HCPCS: 36415-UA; 71045-TC; 80048-TC; 80053-TC; 80061-TC; 80307; 80320-TC; 82550-TC; 82948-90; 83036-90; 83880-TC; 84443-TC; 84484-TC; 85007-TC; 85025-TC; 85027-TC; 85379-TC; 85610-TC; 85652-TC; 86141-TC; 93005; 94640; 94760; J1200; J1630; J1815; J2001; J3480; J7030; J7613; Q9967; Z7610